=== PATIENT | female | born 1975 | race Caucasian/White ===

== ENCOUNTER → 2017-03-02 | Outpatient (CLI) | payer BC ==
[2017-03-02 07:46] LABS: Cholesterol 168 mg/dL (<200); HDL Cholesterol 55 mg/dL (40-60); LDL Cholesterol,Calculated 83 mg/dL (0-99); Triglycerides 152 mg/dL (<150)
--- NOTE | 2017-03-02 14:03 | MM ---
Reason for exam: screening (asymptomatic). Last mammogram was performed 3 years and 5 months ago. Physical Findings: A clinical breast exam by your physician is recommended on an annual basis and results should be correlated with mammographic findings. MG 3D Screening Mammo W/Cad Bilateral CC and MLO view(s) were taken. Prior study comparison: October 08, 2013, mammogram, performed at [facility]. The breast tissue is heterogeneously dense. This may lower the sensitivity of mammography. There is a new 5mm mass in the upper outer quadrant of the left breast at middle depth 4cm from nipple. Additionally and more concerning there is a new focal asymmetry with distortion on the CC 3D view (37/75) measuring 7.5mm in the upper outer quadrant of the left breast at middle posterior depth. Adjacent to this on CC image 45/75 there are two additional masses measuring 3 and 4mm. ASSESSMENT: Incomplete: need additional imaging evaluation, BI-RAD 0 RECOMMENDATION: Special view mammogram of the left breast. If lesion persists on supplemental views, image directed ultrasound is recommended. [facility] will attempt to contact patient to return for supplemental views and ultrasound if indicated.
== END | disposition home or self-care (01) ==
LOC: RADMAMWWP 06:59
PROVIDERS: ATTEND Obstetrics & Gynecology
DX: Z12.31 Encounter for screening mammogram for malignant neoplasm of breast (principal); E78.4 Other hyperlipidemia
CPT/HCPCS: 80061; 77063; 36415; G0202

== ENCOUNTER → 2017-03-22 | Outpatient (CLI) | payer BC ==
--- NOTE | 2017-03-23 10:24 | MM ---
Reason for exam: additional evaluation requested from abnormal screening. Last mammogram was performed 1 month ago. Physical Findings: Nurse did not find any significant physical abnormalities on exam. MG 3D Work Up W/Cad LT Spot compression CC, spot compression MLO, and LM view(s) were taken of the left breast. Prior study comparison: March 02, 2017, bilateral MG 3d screening mammo w/cad. October 08, 2013, mammogram, performed at [facility]. The breast tissue is heterogeneously dense. This may lower the sensitivity of mammography. Focal asymmetry in the upper outer left breast persists. Ultrasound is recommended. These results were verbally communicated with the patient and result sheet given to the patient on 03/22/17. ASSESSMENT: Incomplete: need additional imaging evaluation, BI-RAD 0 RECOMMENDATION: Ultrasound of the left breast.
--- NOTE | 2017-03-23 10:31 | USB ---
Reason for exam: additional evaluation requested from abnormal screening. US Breast Workup Limited LT Left breast ultrasound demonstrates a 0.4 x 0.4 x 0.5cm lesion too small to characterize at 12 o'clock and a 0.4 x 0.2 x 0.4cm lesion too small to characterize at 12 o'clock. Mammographic findings discordant. Stereotactic core biopsy recommended. These results were verbally communicated with the patient and result sheet given to the patient on 03/22/17. ASSESSMENT: Suspicious, BI-RAD 4 RECOMMENDATION: Stereotactic core biopsy of the left breast. Called Dr. Morillo with mammographic findings and has scheduled an appointment for the patient for 05/02/17 at 4:[address] Laguerre. Biopsy scheduled for 04/02/17 at 9 o'clock. PRELIMINARY REPORT CALLED AND FAXED TO DR. LAGUERRE ON 03/23/17.
== END | disposition home or self-care (01) ==
LOC: RADMAMWWP 15:36
PROVIDERS: ATTEND Obstetrics & Gynecology
DX: R92.8 Other abnormal and inconclusive findings on diagnostic imaging of breast (principal)
CPT/HCPCS: 77065; 76642; G0279

== ENCOUNTER → 2017-04-02 | Day surgery (SDC) | payer BC ==
[2017-04-02 08:29] VITALS: RESP 12; TEMP 98.4
[2017-04-02 10:52] VITALS: BP 127/78; PULSE 84
--- NOTE | 2017-04-02 11:40 | MM ---
EXAMINATION TYPE: MG stereo VAD BX addl LT DATE OF EXAM: 04/02/2017 COMPARISON: NONE CLINICAL HISTORY: Abnormal mammogram TECHNIQUE: Stereotactic guided core biopsy of left breast. 2 location specified. FINDINGS: The procedure of stereotactic guided core biopsy was explained to the patient. Benefits, alternatives, and risks were discussed. An informed consent was then obtained. Timeout was performed. The shortness pathway for biopsy was chosen. Shortness pathway was medial lateral approach. A second more anterior location utilized medial lateral week approach. Radiology performed targeting and the procedure. A vacuum assisted biopsy gun was used to obtain 6 core samples were obtained at each location. Different clips were placed at each location. The patient tolerated the procedure well without any immediate complication. There was minimal blood loss. The patient was kept in the radiology department for short stay after the procedure and then discharged home in stable condition. Post biopsy mammogram ordered by the physician shows the clips to appear in satisfactory position relative to the targeted area of concern on the preprocedure images. IMPRESSION: 1. Successful stereotactic core biopsy 2 locations left breast. Recommendations: 1. Recommendations are pending pathology results. Pathology Results: Benign A. BREAST, LEFT, SITE A POSTERIOR, CORE BIOPSY: FIBROCYSTIC CHANGES INCLUDING FIBROSIS, CYSTS, AND APOCRINE METAPLASIA. B. BREAST, LEFT, SITE B ANTERIOR, CORE BIOPSY: FIBROCYSTIC CHANGES INCLUDING FIBROSIS, CYSTS, AND APOCRINE METAPLASIA. Recommendation Follow up mammogram of the left breast in 6 months. ROSOCE
== END ==
LOC: RADMAMWWP 08:14
PROVIDERS: ATTEND Surgery
DX: N60.32 Fibrosclerosis of left breast (principal); N60.12 Diffuse cystic mastopathy of left breast; N60.82 Other benign mammary dysplasias of left breast; R92.8 Other abnormal and inconclusive findings on diagnostic imaging of breast
CPT/HCPCS: 88305; 19081; 19082; A4648; J2001

== ENCOUNTER → 2017-10-22 | Outpatient (CLI) | payer BC ==
--- NOTE | 2017-10-23 07:56 | MM ---
Reason for exam: follow-up at short interval from prior study. Last mammogram was performed 7 months ago. History: Benign MG stereo VAD BX addl LT of the left breast, April 02, 2017. Benign MG stereo VAD BX LT of the left breast, April 02, 2017. Physical Findings: Nurse did not find any significant physical abnormalities on exam. MG 3D Diag Mammo W/Cad LT CC and MLO view(s) were taken of the left breast. Technologist: Ronit Zepeda, RT (R)(M) Prior study comparison: March 22, 2017, left breast MG 3d work up w/cad LT. March 02, 2017, bilateral MG 3d screening mammo w/cad. The breast tissue is heterogeneously dense. This may lower the sensitivity of mammography. There are benign appearing round distrophic calcification in the left breast. Previous Mammotome biopsy x2 in the left breast. Chronic nodularity left breast. No discrete abnormality. These results were verbally communicated with the patient and result sheet given to the patient on 10/22/17. ASSESSMENT: Benign, BI-RAD 2 RECOMMENDATION: Return to routine screening mammogram schedule for both breasts.
== END | disposition home or self-care (01) ==
LOC: RADMAMWWP 07:37
PROVIDERS: ATTEND Surgery
DX: R92.8 Other abnormal and inconclusive findings on diagnostic imaging of breast (principal)
CPT/HCPCS: 77061; 77065